=== PATIENT | female | born 1990 | race Two or more races ===

== ENCOUNTER 2022-11-21 06:43 | Day surgery (SDC) | payer OTHER ==
[~2022-11-21 06:43] MED LIST: IRON325 MG PO; PRENATAL FORMU1 EAC1 PO
== END 2022-11-21 14:10 | disposition home or self-care (01) ==
LOC: CIR.AMB 06:43
PROVIDERS: ATTEND Obstetrics & Gynecology
DX: Z30.2 Encounter for sterilization (principal); Z20.822 Contact with and (suspected) exposure to COVID-19